=== PATIENT | female | born 1990 | race African-American/Black ===

== ENCOUNTER 2016-08-16 00:50 | Emergency (ER) | payer OTHER ==
[~2016-08-16] VITALS: Ht 170.2 cm; Wt 91.2 kg
[~2016-08-16 00:50] MED LIST: CLEOCIN HCL300 MG PO; FERROUS SULFAT325 MG PO; IMITREX50 MG PO; IMODIUM2 MG PO; KEFLEX250 MG PO; PRENATAL1 TA1 PO; PTU PO; SYNTHROID0.075 MG PO; SYNTHROID0.1 MG PO; TOPAMAX25 MG PO; TOPAMAX50 MG PO; TYLENOL #3 300/1 TAB PO; TYLENOL ES500 MG PO; ZOFRAN ODT4 MG PO
[2016-08-16 00:55] VITALS: BP 138/83
--- NOTE | 2016-08-16 01:51 | NUR ---
TO ER BED 2
--- NOTE | 2016-08-16 01:52 | NUR ---
PATIENT PRESENTS TO ED WITH RIGHT LOWER MOLAR PAIN X 1 DAY . PT STATES ITS CONSTANT SHARP PAIN . DENIES N/V/D; SKIN IS PINK/WARM/DRY; AAOX4 WITH EVEN AND STEADY GAIT; LUNGS CLEAR BL; HR EVEN AND REGULAR; PT DENIES ANY FEVER, CP, SOB, OR COUGH AT THIS TIME; PATIENT STATES PAIN OF 9/10 AT THIS TIME; VSS; PATIENT POSITIONED FOR COMFORT; HOB ELEVATED; BEDRAILS UP X2; BED DOWN. ER MD MADE AWARE OF PT STATUS.
--- NOTE | 2016-08-16 02:05 | NUR ---
Patient being evaluated by physician DR AVERY at bedside.
[2016-08-16 02:28] VITALS: BP 127/79
--- NOTE | 2016-08-16 02:28 | NUR ---
Patient discharged with v/s stable. Written and verbal after care instructions given and explained. Patient alert, oriented and verbalized understanding of instructions. Ambulatory with steady gait. All questions addressed prior to discharge. ID band removed. Patient advised to follow up with PMD. Rx of AMOX 500MG AND NORCO 5/325MG given. Patient educated on indication of medication including possible reaction and side effects. Opportunity to ask questions provided and answered.
== END 2016-08-16 02:28 | disposition home or self-care (01) ==
LOC: MED 00:50
DX: K04.7 Periapical abscess without sinus (principal); R03.0 Elevated blood-pressure reading, without diagnosis of hypertension; E03.9 Hypothyroidism, unspecified; Z88.6 Allergy status to analgesic agent; Z88.5 Allergy status to narcotic agent

== ENCOUNTER 2016-09-30 11:55 | Emergency (ER) | payer OTHER ==
[~2016-09-30] VITALS: Ht 170.2 cm; Wt 87.5 kg
[2016-09-30 11:59] VITALS: BP 109/78
--- NOTE | 2016-09-30 12:35 | NUR ---
26/F BIB SELF C/O LOWER ABDOMINAL PAIN x 2 DAYS. PT STATES PAIN RADIATING TO R BACK ,NO N/V BUT HAS CONSTIPATION. SKIN IS PINK/WARM/DRY; AAOX4 WITH EVEN AND STEADY GAIT; LUNGS CLEAR BL; HR EVEN AND REGULAR; PT DENIES ANY FEVER, CP, SOB, OR COUGH AT THIS TIME; PATIENT STATES SHARP PAIN OF 9/10 AT THIS TIME; VSS; PATIENT POSITIONED FOR COMFORT; HOB ELEVATED; BEDRAILS UP X2; BED DOWN. ER MD MADE AWARE OF PT STATUS.
[2016-09-30] MEDS ORDERED: HYDROcodone/APAP 10/325 MG 1 TAB TAB PO STA ×2 (12:54→14:07)
[2016-09-30] MEDS ORDERED: ONDANSETRON 4 MG ODT PO ONE ×2 (13:30→14:50)
--- NOTE | 2016-09-30 15:39 | NUR ---
Dr. Henry re-evaluating patient at bedside.
--- NOTE | 2016-09-30 15:47 | NUR ---
Patient discharged with v/s stable. Written and verbal after care instructions given and explained. Patient alert, oriented and verbalized understanding of instructions. Ambulatory with steady gait. All questions addressed prior to discharge. ID band removed. Patient advised to follow up with PMD. Rx of NORCO & ZOFRAN ODT given. Patient educated on indication of medication including possible reaction and side effects. Opportunity to ask questions provided and answered.
[2016-09-30 16:13] VITALS: BP 116/70
== END 2016-09-30 15:47 | disposition home or self-care (01) ==
LOC: MED 11:56
DX: K52.9 Noninfective gastroenteritis and colitis, unspecified (principal); E03.9 Hypothyroidism, unspecified; Z88.6 Allergy status to analgesic agent; Z88.1 Allergy status to other antibiotic agents
CPT/HCPCS: 76830; 76856; 81002; 81025; 99284; S0119

== ENCOUNTER 2016-10-18 03:10 | Emergency (ER) | payer OTHER ==
[~2016-10-18] VITALS: Ht 170.2 cm; Wt 89.8 kg
[~2016-10-18 03:10] MED LIST changes: -CLEOCIN HCL300 MG PO; -FERROUS SULFAT325 MG PO; -IMITREX50 MG PO; -IMODIUM2 MG PO; -KEFLEX250 MG PO; -PRENATAL1 TA1 PO; -PTU PO; +PTU50 PO; -SYNTHROID0.075 MG PO; -SYNTHROID0.1 MG PO; -TOPAMAX25 MG PO; -TOPAMAX50 MG PO; -TYLENOL #3 300/1 TAB PO; -TYLENOL ES500 MG PO; -ZOFRAN ODT4 MG PO
[2016-10-18 03:15] VITALS: BP 117/77
--- NOTE | 2016-10-18 03:20 | NUR ---
TO ER BED 4
[2016-10-18] MEDS ORDERED: fentaNYL 0.05 MG/ML VIAL IM ONE (03:35)
--- NOTE | 2016-10-18 03:45 | NUR ---
Patient being evaluated by DR. AVERY at bedside.
--- NOTE | 2016-10-18 03:51 | NUR ---
26Y/F PATIENT PRESENTS TO ED WITH C/O TOOTHACHE X3 DAYS . PT STATES TOOTHCAHE ON THE RT.SIDE 3 DAYS, NO FVER. DENIES N/V/D; SKIN IS PINK/WARM/DRY; AAOX4 WITH EVEN AND STEADY GAIT; LUNGS CLEAR BL; HR EVEN AND REGULAR; PT DENIES ANY FEVER, CP, SOB, OR COUGH AT THIS TIME; PATIENT STATES PAIN OF 9/10 AT THIS TIME; VSS; PATIENT POSITIONED FOR COMFORT; HOB ELEVATED; BEDRAILS UP X2; BED DOWN. ER MD MADE AWARE OF PT STATUS.
--- NOTE | 2016-10-18 04:30 | NUR ---
Patient discharged with v/s stable. Written and verbal after care instructions given and explained. Patient alert, oriented and verbalized understanding of instructions. Ambulatory with steady gait. All questions addressed prior to discharge. ID band removed. Patient advised to follow up with PMD. Rx of AMOXICILLIN 500 MG, TYLENOL NO.3 given. Patient educated on indication of medication including possible reaction and side effects. Opportunity to ask questions provided and answered.
[2016-10-18 04:32] VITALS: BP 120/75
== END 2016-10-18 04:30 | disposition home or self-care (01) ==
LOC: MED 03:10
DX: K04.7 Periapical abscess without sinus (principal); E03.9 Hypothyroidism, unspecified; Z88.6 Allergy status to analgesic agent; Z88.1 Allergy status to other antibiotic agents
CPT/HCPCS: 96372; 99283; J3010

== ENCOUNTER 2016-10-20 09:15 | Emergency (ER) | payer OTHER ==
[~2016-10-20] VITALS: Ht 175.3 cm; Wt 87.1 kg
[~2016-10-20 09:15] MED LIST changes: +CLEOCIN HCL300 MG PO; +FERROUS SULFAT325 MG PO; +IMITREX50 MG PO; +IMODIUM2 MG PO; +KEFLEX250 MG PO; +PRENATAL1 TA1 PO; +PTU PO; -PTU50 PO; +SYNTHROID0.075 MG PO; +SYNTHROID0.1 MG PO; +TOPAMAX25 MG PO; +TOPAMAX50 MG PO; +TYLENOL #3 300/1 TAB PO; +TYLENOL ES500 MG PO; +ZOFRAN ODT4 MG PO
[2016-10-20 09:18] VITALS: BP 115/73
--- NOTE | 2016-10-20 09:23 | NUR ---
Patient ambulated to bed 05.
--- NOTE | 2016-10-20 09:27 | NUR ---
Dr. Kearns evaluating patient at bedside.
--- NOTE | 2016-10-20 09:33 | NUR ---
PATIENT PRESENTS TO ED WITH C/O LEFT LOWER TOOTH PAIN X 6 DAYS-WAS SEEN IN OUR ER X 3 DAYS AGO RX AMOXICILLIN, TYLENOL W CODEINE;PAIN INCREASED AND NOW SURROUNDING TISSUE PAIN;HX-GRAVE'S DISEASE;RX-PTU 75MCG PO QD . DENIES N/V/D; SKIN IS PINK/WARM/DRY; AAOX4 WITH EVEN AND STEADY GAIT; LUNGS CLEAR BL; HR EVEN AND REGULAR; PT DENIES ANY FEVER, CP, SOB, OR COUGH AT THIS TIME; PATIENT STATES PAIN OF 9/10 AT THIS TIME; PATIENT POSITIONED FOR COMFORT; HOB ELEVATED; BEDRAILS UP X2; BED DOWN. ER MD MADE AWARE OF PT STATUS.
[2016-10-20] MEDS ORDERED: HYDROcodone/APAP 10/325 MG 1 TAB TAB PO PRN (09:45)
[2016-10-20 10:02] VITALS: BP 118/73
== END 2016-10-20 10:01 | disposition home or self-care (01) ==
LOC: MED 09:15
DX: K02.9 Dental caries, unspecified (principal); E03.9 Hypothyroidism, unspecified; Z88.6 Allergy status to analgesic agent; Z88.8 Allergy status to other drugs, medicaments and biological substances

== ENCOUNTER 2016-12-11 00:04 | Emergency (ER) | payer OTHER ==
[~2016-12-11] VITALS: Ht 170.2 cm; Wt 85.7 kg
[~2016-12-11 00:04] MED LIST changes: -CLEOCIN HCL300 MG PO; -FERROUS SULFAT325 MG PO; -IMITREX50 MG PO; -IMODIUM2 MG PO; -KEFLEX250 MG PO; -PRENATAL1 TA1 PO; -PTU PO; +PTU50 PO; -SYNTHROID0.075 MG PO; -SYNTHROID0.1 MG PO; -TOPAMAX25 MG PO; -TOPAMAX50 MG PO; -TYLENOL #3 300/1 TAB PO; -TYLENOL ES500 MG PO; -ZOFRAN ODT4 MG PO
[2016-12-11 00:17] VITALS: BP 129/90
[2016-12-11 00:45] LABS: APPEARANCE,URINE TURBID (CLEAR); BILIRUBIN,URINE NEGATIVE (NEGATIVE); BLOOD, URINE 3+ (NEGATIVE); COLOR,URINE RED (YELLOW); LEUKOCYTE ESTERASE ,URINE NEGATIVE (NEGATIVE); NITRITE, URINE NEGATIVE (NEGATIVE); PROTEIN,URINE 1+ (NEGATIVE); UGLUCOSE NEGATIVE (NEGATIVE)
[2016-12-11] MEDS ORDERED: NACL 0.9% 1,000 ML IV ONE (00:50)
[2016-12-11] MEDS ORDERED: KETOROLAC 30 MG/ML VIAL IVP ONE (00:50)
[2016-12-11 00:53] LABS: BASOPHILS # (AUTO) 0.3 K/uL (0.00-0.22); BASOPHILS % (AUTO) 4.9 % (0.0-2.0); EOSINOPHILS # (AUTO) 0.1 K/uL (0-0.4); EOSINOPHILS % (AUTO) 2.6 % (0.0-4.0); HEMOGLOBIN 9.8 g/dL (12.0-16.0); LYMPHOCYTES # (AUTO) 1.4 K/uL (2.5-16.5); LYMPHOCYTES % (AUTO) 25.6 % (20.5-51.1); MEAN CORPUSCULAR HEMOGLOBIN 19 pg (27-31); MEAN CORPUSCULAR HGB CONC 29 g/dL (33-37); MEAN CORPUSCULAR VOLUME 65 fL (80-94); MONOCYTES # (AUTO) 0.7 K/uL (0.8-1.0); MONOCYTES % (AUTO) 13.5 % (1.7-9.3); NEUTROPHILS % (AUTO) 53.4 % (42.2-75.2); PLATELET COUNT (AUTO) 305 K/uL (140-450); RED CELL DISTRIBUTION WIDTH 17.5 % (11.6-13.7); WHITE BLOOD COUNT (AUTO) 5.5 K/uL (4.8-10.8)
[2016-12-11 00:54] LABS: HEMATOCRIT 29.4 % (36-48)
[2016-12-11 01:00] LABS: ALBUMIN 3.8 g/dL (3.4-5.0); ANION GAP 10.9 (8-16); CALCIUM 8.2 mg/dL (8.5-10.1); CARBON DIOXIDE 28.6 mmol/L (21-32); CREATININE 0.8 mg/dL (0.6-1.3); POTASSIUM 3.5 mmol/L (3.5-5.1); TOTAL BILIRUBIN 0.1 mg/dL (0.0-1.0); TOTAL PROTEIN, SERUM 8.1 g/dL (6.4-8.2)
[2016-12-11 01:06] LABS: INR 1.1 (0.8-1.2); PARTIAL THROMBOPLASTIN TIME 27.4 secs (22-35.6); PROTHROMBIN TIME 10.7 secs (10.8-13.4)
[2016-12-11 01:06] LABS: BACTERIA,URINE FEW /HPF (None Seen); MUCUS,URINE 4+ /LPF (None Seen); RBC,URINE TOO NUMEROUS TO COUN /HPF (0-5); SQUAMOUS EPITHELIAL CELL,UR 0-3 /LPF (0-3 (FEW)); WBC,URINE 0-3 /HPF (0-5)
[2016-12-11] MEDS ORDERED: MORPHINE SULFATE 4 MG/ML SYR IVP ONE (01:40)
[2016-12-11 02:08] VITALS: BP 110/88
== END 2016-12-11 02:08 | disposition home or self-care (01) ==
LOC: MED 00:04
DX: N93.8 Other specified abnormal uterine and vaginal bleeding (principal); E05.00 Thyrotoxicosis with diffuse goiter without thyrotoxic crisis or storm; Z88.6 Allergy status to analgesic agent
CPT/HCPCS: 36415; 76856; 80053; 81001; 81002; 81025; 85025; 85610; 85730; 86900; 86901; 96361; 96374; 96375; 99285; J1885; J2270; J7030; Q0092

== ENCOUNTER 2016-12-13 10:28 | Emergency (ER) | payer OTHER ==
[~2016-12-13] VITALS: Ht 172.7 cm; Wt 84.9 kg
[2016-12-13 10:35] VITALS: BP 124/69
--- NOTE | 2016-12-13 11:34 | NUR ---
PT AMBULATED TO BED 6
--- NOTE | 2016-12-13 11:38 | NUR ---
26F BIB FAMILY C/O BILATERAL LOWER ABDOMINAL PAIN, SHARP, RADIATES TO LEFT BACK, 8/10 X 2 DAYS; PT C/O NAUSEA, BUT DENIES VOMITING/DIARRHEA AT THIS TIME; ABDOMEN SOFT, NON-TENDER, ACTIVE BOWEL SOUNDS X 4 QUADRANTS; PT AA&OX4, PERRLA, BL LUNG SOUNDS CLEAR, RR EVEN/UNLABORED, SKIN IS WARM/DRY/INTACT AT THIS TIME; PT STATES WAS SEEN AT [facility] ER ON SATURDAY FOR SAME SIGNS/SYMPTOMS, BUT SIGNS AND SYMPTOMS WORSENED SINCE PREVIOUS VISIT; PT RESTING IN BED W/ HOB ELEVATED AND IN LOWEST POSITION; POSITIONED FOR COMFORT; ER MD MADE AWARE OF STATUS. WILL CONTINUE TO MONITOR.
[2016-12-13 12:10] LABS: APPEARANCE,URINE CLEAR (CLEAR); BILIRUBIN,URINE NEGATIVE (NEGATIVE); BLOOD, URINE 2+ (NEGATIVE); COLOR,URINE YELLOW (YELLOW); LEUKOCYTE ESTERASE ,URINE NEGATIVE (NEGATIVE); NITRITE, URINE NEGATIVE (NEGATIVE); PROTEIN,URINE NEGATIVE (NEGATIVE); UGLUCOSE NEGATIVE (NEGATIVE); UROBILINOGEN,URINE 0.2 EU/dL (0.2 - 1)
[2016-12-13 12:14] LABS: HEMATOCRIT 29.1 % (36-48); HEMOGLOBIN 9.1 g/dL (12.0-16.0); MEAN CORPUSCULAR HEMOGLOBIN 20 pg (27-31); MEAN CORPUSCULAR HGB CONC 31 g/dL (33-37); MEAN CORPUSCULAR VOLUME 65 fL (80-94); PLATELET COUNT (AUTO) 218 K/uL (140-450); RED BLOOD CELL COUNT(AUTO) 4.51 MIL/uL (4.20-5.40); RED CELL DISTRIBUTION WIDTH 17.6 % (11.6-13.7); WHITE BLOOD COUNT (AUTO) 4.3 K/uL (4.8-10.8)
--- NOTE | 2016-12-13 12:18 | NUR ---
ER MD DR. CAUSEY EVALUATING PT AT BEDSIDE.
[2016-12-13 12:24] LABS: ALBUMIN 3.3 g/dL (3.4-5.0); CALCIUM 7.8 mg/dL (8.5-10.1); CARBON DIOXIDE 27.6 mmol/L (21-32); CREATININE 0.7 mg/dL (0.6-1.3); POTASSIUM 3.6 mmol/L (3.5-5.1); TOTAL BILIRUBIN 0.3 mg/dL (0.0-1.0); TOTAL PROTEIN, SERUM 7.2 g/dL (6.4-8.2)
[2016-12-13 12:26] LABS: BACTERIA,URINE None Seen /HPF (None Seen); RBC,URINE NONE SEEN /HPF (0-5); SQUAMOUS EPITHELIAL CELL,UR 4-10 (MOD) /LPF (0-3 (FEW)); WBC,URINE 0-5 (RARE) /HPF (0-5)
[2016-12-13 12:41] LABS: BAND % (MANUAL) 1 % (0-8); LYMPHOCYTES % (MANUAL) 25 % (20-46); MONOCYTES % (MANUAL) 8 % (5-12); NEUTROPHILS % (MANUAL) 66 (43-65)
[2016-12-13 12:42] LABS: ANISOCYTOSIS 1+; HYPOCHROMASIA 1+; POIKILOCYTOSIS 1+
[2016-12-13 12:43] LABS: OVALOCYTES 1+; TEAR DROP CELLS 1+
--- NOTE | 2016-12-13 13:12 | NUR ---
PT APPEARS TO BE RESTING COMFORTABLY IN BED; VSS; RR EVEN/UNLABORED; POSITIONED FOR COMFORT; WILL CONTINUE TO MONITOR.
[2016-12-13] MEDS ORDERED: ONDANSETRON 4 MG/2 ML VIAL IVP ONE (13:15)
[2016-12-13] MEDS ORDERED: NACL 0.9% 1,000 ML IV ONE (13:15)
[2016-12-13] MEDS ORDERED: HYDROmorphone 1 MG/ML AMP IVP ONE (13:15)
--- NOTE | 2016-12-13 14:36 | NUR ---
IV removed, catheter intact and site benign. Applied folded 4x4 gauze and tape to stop bleeding. PT TOLERATED PROCEDURE WELL.
--- NOTE | 2016-12-13 15:24 | NUR ---
PT APPEARS TO BE RESTING COMFORTABLY IN BED; VSS; RR EVEN/UNLABORED; POSITIONED FOR COMFORT; WILL CONTINUE TO MONITOR.
[2016-12-13 15:49] VITALS: BP 125/83
--- NOTE | 2016-12-13 15:49 | NUR ---
Patient discharged with v/s stable. Written and verbal after care instructions given and explained. Patient alert, oriented and verbalized understanding of instructions. Ambulatory with steady gait. All questions addressed prior to discharge. ID band removed. Patient advised to follow up with PMD. Rx of PYRIDIUM 200MG TAB, CIPRO 500MG TAB & NORCO 7.5MG-325MG TAB given. Patient educated on indication of medication including possible reaction and side effects. Opportunity to ask questions provided and answered.
== END 2016-12-13 15:49 | disposition home or self-care (01) ==
LOC: MED 10:28
DX: R10.32 Left lower quadrant pain (principal); R30.0 Dysuria; R35.0 Frequency of micturition; Z88.6 Allergy status to analgesic agent
CPT/HCPCS: 36415; 80053; 81001; 81025; 85025; 96361; 96374; 96375; 99284; J1170; J2405; J7030

== ENCOUNTER 2016-12-26 00:35 | Emergency (ER) | payer OTHER ==
[~2016-12-26] VITALS: Ht 170.2 cm; Wt 87.5 kg
[2016-12-26 00:39] VITALS: BP 149/100
--- NOTE | 2016-12-26 00:54 | NUR ---
TO ER BED 7
--- NOTE | 2016-12-26 01:00 | NUR ---
26F BIB FAMILY C/O MID-LOWER ABDOMINAL PAIN, SHARP, RADIATES TO RT BACK, 10 X 2 WEEKS; PT STATES HAD 4 EPISODES OF VOMITING TODAY, BUT STATES NO DIARRHEA AT THIS TIME; ABDOMEN SOFT, NON-TENDER, ACTIVE BOWEL SOUNDS X 4 QUADRANTS; PT STATES HAS FREQUENT URINATION, BUT STATES NO BURNING WITH URINATION AT THIS TIME; PT AA&OX4, PERRLA, BL LUNG SOUNDS CLEAR, RR EVEN/UNLABORED, SKIN IS WARM/DRY/INTACT; PT RESTING IN BED WITH HOB ELEVATED AND IN LOWEST POSITION; POSITIONED FOR COMFORT; ER MD MADE AWARE OF STATUS. WILL CONTINUE TO MONITOR.
[2016-12-26] MEDS ORDERED: NACL 0.9% 1,000 ML IV ONE (01:38)
[2016-12-26] MEDS ORDERED: MORPHINE SULFATE 4 MG/ML SYR IVP ONE ×2 (01:40→02:15)
[2016-12-26] MEDS ORDERED: ONDANSETRON 4 MG/2 ML VIAL IVP ONE (01:40)
[2016-12-26 01:57] LABS: BASOPHILS # (AUTO) 0.1 K/uL (0.00-0.22); EOSINOPHILS # (AUTO) 0.1 K/uL (0-0.4)
[2016-12-26 01:59] LABS: APPEARANCE,URINE CLOUDY (CLEAR); BILIRUBIN,URINE NEGATIVE (NEGATIVE); BLOOD, URINE NEGATIVE (NEGATIVE); COLOR,URINE YELLOW (YELLOW); LEUKOCYTE ESTERASE ,URINE NEGATIVE (NEGATIVE); NITRITE, URINE NEGATIVE (NEGATIVE); PROTEIN,URINE NEGATIVE (NEGATIVE); UGLUCOSE NEGATIVE (NEGATIVE); UROBILINOGEN,URINE 0.2 EU/dL (0.2 - 1)
[2016-12-26 02:00] LABS: BASOPHILS % (AUTO) 1.9 % (0.0-2.0); EOSINOPHILS % (AUTO) 1.3 % (0.0-4.0); HEMATOCRIT 30.1 % (36-48); HEMOGLOBIN 9.1 g/dL (12.0-16.0); LYMPHOCYTES # (AUTO) 1.5 K/uL (2.5-16.5); LYMPHOCYTES % (AUTO) 27.8 % (20.5-51.1); MEAN CORPUSCULAR HEMOGLOBIN 19 pg (27-31); MEAN CORPUSCULAR HGB CONC 30 g/dL (33-37); MEAN CORPUSCULAR VOLUME 64 fL (80-94); MONOCYTES # (AUTO) 0.8 K/uL (0.8-1.0); MONOCYTES % (AUTO) 14.1 % (1.7-9.3); NEUTROPHILS % (AUTO) 54.9 % (42.2-75.2); PLATELET COUNT (AUTO) 234 K/uL (140-450); RED CELL DISTRIBUTION WIDTH 17.1 % (11.6-13.7); WHITE BLOOD COUNT (AUTO) 5.5 K/uL (4.8-10.8)
[2016-12-26 02:06] LABS: AMPHETAMINE, URINE NEG. ng/ml (NEG <=1000); BARBITURATE, URINE POS. ng/ml (NEG <=200); BENZODIAZEPINE, URINE NEG. ng/mL (NEG <=200); CANNABINOID, URINE NEG. ng/mL (NEG <=50); COCAINE, URINE NEG. ng/mL (NEG <=300); OPIATE, URINE POS. ng/mL (NEG <=2000); PHENCYCLIDINE SCREEN,URINE NEG. ng/mL (NEG <=25)
--- NOTE | 2016-12-26 02:09 | NUR ---
PT BACK ON UNIT FROM CT
[2016-12-26 02:15] LABS: ALBUMIN 3.4 g/dL (3.4-5.0); ANION GAP 9.6 (8-16); CALCIUM 7.8 mg/dL (8.5-10.1); CARBON DIOXIDE 26.9 mmol/L (21-32); CREATININE 0.7 mg/dL (0.6-1.3); POTASSIUM 3.5 mmol/L (3.5-5.1); TOTAL BILIRUBIN 0.2 mg/dL (0.0-1.0); TOTAL PROTEIN, SERUM 7.4 g/dL (6.4-8.2)
[2016-12-26 02:20] LABS: BACTERIA,URINE None Seen /HPF (None Seen); RBC,URINE NONE SEEN /HPF (0-5); SQUAMOUS EPITHELIAL CELL,UR None Seen /LPF (0-3 (FEW)); WBC,URINE 0-5 (RARE) /HPF (0-5)
[2016-12-26 04:13] VITALS: BP 132/88
--- NOTE | 2016-12-26 04:14 | NUR ---
Patient discharged with v/s stable. Written and verbal after care instructions given and explained. Patient alert, oriented and verbalized understanding of instructions. Ambulatory with steady gait. All questions addressed prior to discharge. ID band removed. Patient advised to follow up with PMD. Rx of NORCO, COLACE, FLEXERIL given. Patient educated on indication of medication including possible reaction and side effects. Opportunity to ask questions provided and answered.
== END 2016-12-26 04:13 | disposition home or self-care (01) ==
LOC: MED 00:35
DX: R10.30 Lower abdominal pain, unspecified (principal); M54.5 Low back pain; R11.10 Vomiting, unspecified; Z88.6 Allergy status to analgesic agent; E05.00 Thyrotoxicosis with diffuse goiter without thyrotoxic crisis or storm
CPT/HCPCS: 36415; 74176; 80053; 80305; 81001; 81025; 83690; 85025; 96361; 96374; 96375; 99285; J2270; J2405; J7030

== ENCOUNTER 2017-02-02 03:09 | Emergency (ER) | payer OTHER ==
[~2017-02-02] VITALS: Ht 170.2 cm; Wt 87.5 kg
[2017-02-02 03:13] VITALS: BP 136/90
[2017-02-02 03:25] VITALS: BP 136/90
--- NOTE | 2017-02-02 03:25 | NUR ---
TO ER BED 6
--- NOTE | 2017-02-02 03:29 | NUR ---
26Y/F PATIENT PRESENTS TO ED WITH C/O TOOTHACHE 2 HRS; SKIN IS PINK/WARM/DRY; AAOX4 WITH EVEN AND STEADY GAIT; LUNGS CLEAR BL; HR EVEN AND REGULAR; PT DENIES ANY FEVER, CP, SOB, OR COUGH AT THIS TIME; PATIENT STATES PAIN OF 9/10 AT THIS TIME; VSS; PATIENT POSITIONED FOR COMFORT; HOB ELEVATED; BEDRAILS UP X2; BED DOWN. ER MD MADE AWARE OF PT STATUS.
--- NOTE | 2017-02-02 04:19 | NUR ---
Patient being evaluated by physician at bedside.
--- NOTE | 2017-02-02 04:25 | NUR ---
PATIENT ELOPED FROM FACILITY. DISCHARGE INSTRUCTIONS NOT GIVEN TO PATIENT. DR. BRITO NOTIFIED.
== END 2017-02-02 04:25 | disposition left against medical advice (07) ==
LOC: MED 03:21
DX: K08.89 Other specified disorders of teeth and supporting structures (principal); Z53.21 Procedure and treatment not carried out due to patient leaving prior to being seen by health care provider
CPT/HCPCS: 99281

== ENCOUNTER 2017-07-07 10:41 | Emergency (ER) | payer OTHER ==
[~2017-07-07] VITALS: Ht 170.2 cm; Wt 76.7 kg
[2017-07-07 10:49] VITALS: BP 130/83
--- NOTE | 2017-07-07 10:53 | NUR ---
PT AMBULATED TO BED 11
--- NOTE | 2017-07-07 10:57 | NUR ---
PATIENT PRESENTS TO ED WITH LLQ pain radiating to left lower x 1 week Hx graves disease; DENIES N/V/D; SKIN IS PINK/WARM/DRY; AAOX4 WITH EVEN AND STEADY GAIT; LUNGS CLEAR BL; HR EVEN AND REGULAR; PT DENIES ANY FEVER, CP, SOB, OR COUGH AT THIS TIME; PATIENT STATES PAIN OF 9/10 AT THIS TIME; VSS; PATIENT POSITIONED FOR COMFORT; HOB ELEVATED; BEDRAILS UP X2; BED DOWN. ER MD MADE AWARE OF PT STATUS.
--- NOTE | 2017-07-07 11:09 | NUR ---
DR DONIS EVALUATING AAO PT AT BEDSIDE
[2017-07-07] MEDS ORDERED: MORPHINE SULFATE 4 MG/ML SYR IM ONE (11:15)
[2017-07-07 11:41] VITALS: BP 133/79
--- NOTE | 2017-07-07 11:41 | NUR ---
Patient discharged with v/s stable. Written and verbal after care instructions given and explained. Patient alert, oriented and verbalized understanding of instructions. Ambulatory with steady gait. All questions addressed prior to discharge. ID band removed. Patient advised to follow up with PMD. Rx of FERNANDO BROUSSARD given. Patient educated on indication of medication including possible reaction and side effects. Opportunity to ask questions provided and answered.
== END 2017-07-07 11:41 | disposition home or self-care (01) ==
LOC: MED 10:41
DX: M54.5 Low back pain (principal); R11.0 Nausea; R10.9 Unspecified abdominal pain; Z79.899 Other long term (current) drug therapy; Z88.8 Allergy status to other drugs, medicaments and biological substances
CPT/HCPCS: 81002; 81025; 96372; 99283; J2270

== ENCOUNTER 2017-08-12 12:32 | Emergency (ER) | payer OTHER ==
[~2017-08-12] VITALS: Ht 172.7 cm; Wt 75.3 kg
[2017-08-12 12:59] VITALS: BP 120/73
[2017-08-12 14:32] LABS: BASOPHILS # (AUTO) 0.1 K/uL (0.00-0.22); BASOPHILS % (AUTO) 1.3 % (0.0-2.0); EOSINOPHILS # (AUTO) 0.1 K/uL (0-0.4); EOSINOPHILS % (AUTO) 0.9 % (0.0-4.0); HEMATOCRIT 33.3 % (36-48); HEMOGLOBIN 10.4 g/dL (12.0-16.0); LYMPHOCYTES # (AUTO) 0.8 K/uL (2.5-16.5); LYMPHOCYTES % (AUTO) 13.5 % (20.5-51.1); MEAN CORPUSCULAR HEMOGLOBIN 20 pg (27-31); MEAN CORPUSCULAR HGB CONC 31 g/dL (33-37); MEAN CORPUSCULAR VOLUME 65 fL (80-94); MONOCYTES # (AUTO) 0.8 K/uL (0.8-1.0); MONOCYTES % (AUTO) 13.5 % (1.7-9.3); NEUTROPHILS # (AUTO) 3.9 K/uL (1.8-7.7); NEUTROPHILS % (AUTO) 70.8 % (42.2-75.2); PLATELET COUNT (AUTO) 267 K/uL (140-450); RED BLOOD CELL COUNT(AUTO) 5.13 MIL/uL (4.20-5.40); WHITE BLOOD COUNT (AUTO) 5.7 K/uL (4.8-10.8)
--- NOTE | 2017-08-12 16:10 | NUR ---
PT AMBULATED TO CHAIR A.
--- NOTE | 2017-08-12 16:15 | NUR ---
PATIENT PRESENTS TO ED WITH C/O SUPRAPUBIC PAIN RADIATING TO BACK, WITH FREQUENCY, URGENCY URINATION X 2 DAYS AGO, DENIES ANY DISCHARGE. AAOX4 WITH EVEN AND STEADY GAIT; LUNGS CLEAR BL; HR EVEN AND REGULAR; PT DENIES ANY FEVER, CP, SOB, OR COUGH AT THIS TIME; DENIES N/V/D; SKIN IS PINK/WARM/DRY; PATIENT STATES PAIN OF 8/10 AT THIS TIME; VSS; ER MD MADE AWARE OF PT STATUS.
[2017-08-12 18:24] VITALS: BP 120/73
--- NOTE | 2017-08-12 18:25 | NUR ---
Patient discharged with v/s stable. Written and verbal after care instructions given and explained. Patient alert, oriented and verbalized understanding of instructions. Ambulatory with steady gait. All questions addressed prior to discharge. ID band removed. Patient advised to follow up with PMD. Rx of ferrous sulfat, folic acid and pre vitamin given. Patient educated on indication of medication including possible reaction and side effects. Opportunity to ask questions provided and answered.
== END 2017-08-12 18:25 | disposition home or self-care (01) ==
LOC: MED 12:32
DX: O20.0 Threatened abortion (principal); Z3A.01 Less than 8 weeks gestation of pregnancy; E05.00 Thyrotoxicosis with diffuse goiter without thyrotoxic crisis or storm; Z88.6 Allergy status to analgesic agent
CPT/HCPCS: 36415; 76817; 81025; 84702; 85025; 86900; 86901; 99285

== ENCOUNTER 2017-08-23 03:05 | Emergency (ER) | payer OTHER ==
[~2017-08-23] VITALS: Ht 170.2 cm; Wt 74.1 kg
[2017-08-23 03:12] VITALS: BP 127/85
--- NOTE | 2017-08-23 03:16 | NUR ---
PT AMBULATED TO BED 1
--- NOTE | 2017-08-23 03:26 | NUR ---
27Y/F PT. PRESENTS TO ED WITH C/O VAGINAL BLEEDING WITH ABDOMINAL CRAMPING X 1DAY. PT. WAS DIAGNOSED OVARIAN CYST WITH THREATTEN MISCARRAGE, GRAVE DISEASE. AAO X4, AMBULATORY WITH STDEAY GAIT. RESPIRATIONS ROOM AIR, EVEN AND UNLABORED. SKIN WARM AND DRY. ABDOMEN SOFT, NON TENDER,ACTIVE BS X4. C/O VAGINAL BLEEDING WITH ABDOMINAL PAIN 9/10. VSS, ER MADE AWARE OF PT. STATUS.
[2017-08-23 03:32] LABS: BASOPHILS # (AUTO) 0.3 K/uL (0.00-0.22); BASOPHILS % (AUTO) 3.6 % (0.0-2.0); EOSINOPHILS # (AUTO) 0.1 K/uL (0-0.4); EOSINOPHILS % (AUTO) 0.9 % (0.0-4.0); HEMOGLOBIN 9.6 g/dL (12.0-16.0); LYMPHOCYTES # (AUTO) 1.3 K/uL (2.5-16.5); LYMPHOCYTES % (AUTO) 17.7 % (20.5-51.1); MEAN CORPUSCULAR HEMOGLOBIN 20 pg (27-31); MEAN CORPUSCULAR HGB CONC 31 g/dL (33-37); MEAN CORPUSCULAR VOLUME 65 fL (80-94); MONOCYTES # (AUTO) 0.8 K/uL (0.8-1.0); MONOCYTES % (AUTO) 10.9 % (1.7-9.3); NEUTROPHILS # (AUTO) 4.6 K/uL (1.8-7.7); NEUTROPHILS % (AUTO) 66.9 % (42.2-75.2); PLATELET COUNT (AUTO) 285 K/uL (140-450); RED BLOOD CELL COUNT(AUTO) 4.79 MIL/uL (4.20-5.40); WHITE BLOOD COUNT (AUTO) 7.1 K/uL (4.8-10.8)
[2017-08-23 03:33] LABS: APPEARANCE,URINE TURBID (CLEAR); BILIRUBIN,URINE 1+ (NEGATIVE); BLOOD, URINE 3+ (NEGATIVE); COLOR,URINE RED (YELLOW); LEUKOCYTE ESTERASE ,URINE NEGATIVE (NEGATIVE); NITRITE, URINE NEGATIVE (NEGATIVE); PH,URINE 5.5 (5.0-9.0); UGLUCOSE NEGATIVE (NEGATIVE)
--- NOTE | 2017-08-23 03:37 | NUR ---
Dr. Henry evaluating patient.
[2017-08-23 03:44] LABS: ANION GAP 10.9 (8-16); CARBON DIOXIDE 26.4 mmol/L (21-32); CREATININE 0.7 mg/dL (0.6-1.3); POTASSIUM 3.3 mmol/L (3.5-5.1)
[2017-08-23 03:44] LABS: RBC,URINE TOO NUMEROUS TO COUN /HPF (0-5); WBC,URINE 0-5 (RARE) /HPF (0-5)
[2017-08-23 03:53] LABS: ALBUMIN 3.9 g/dL (3.4-5.0); TOTAL BILIRUBIN 1.1 mg/dL (0.0-1.0)
[2017-08-23] MEDS ORDERED: MORPHINE SULFATE 2 MG/ML SYR IVP ONE (03:55)
[2017-08-23] MEDS ORDERED: ONDANSETRON 4 MG/2 ML VIAL IVP ONE (03:55)
[2017-08-23] MEDS ORDERED: NACL 0.9% 1,000 ML IV ONE (04:05)
--- NOTE | 2017-08-23 04:10 | NUR ---
PT. TAKEN TO US
--- NOTE | 2017-08-23 04:20 | NUR ---
PT RETURN FROM ULTRASOUND
--- NOTE | 2017-08-23 04:50 | NUR ---
Patient discharged with v/s stable. Written and verbal after care instructions given and explained. Patient alert, oriented and verbalized understanding of instructions. Ambulatory with steady gait. All questions addressed prior to discharge. ID band removed. Patient advised to follow up with PMD. Rx of NORCO 5/325 MG given. Patient educated on indication of medication including possible reaction and side effects. Opportunity to ask questions provided and answered.
[2017-08-23 05:00] VITALS: BP 127/85
== END 2017-08-23 04:50 | disposition home or self-care (01) ==
LOC: MED 03:05
DX: O03.9 Complete or unspecified spontaneous abortion without complication (principal); E05.00 Thyrotoxicosis with diffuse goiter without thyrotoxic crisis or storm; Z3A.01 Less than 8 weeks gestation of pregnancy; Z88.6 Allergy status to analgesic agent
CPT/HCPCS: 36415; 76801; 80053; 81001; 81025; 84443; 84702; 85025; 85610; 85730; 86900; 86901; 96361; 96374; 96375; 99285; J2270; J2405; J7030

== ENCOUNTER 2017-09-17 03:50 | Emergency (ER) | payer OTHER ==
[~2017-09-17] VITALS: Ht 170.2 cm; Wt 75.3 kg
[2017-09-17 03:56] VITALS: BP 140/90
--- NOTE | 2017-09-17 04:01 | NUR ---
PATIENT AMBULATED TO BED 2
--- NOTE | 2017-09-17 04:05 | NUR ---
PATIENT PRESENTS TO ED WITH MOUTH PAIN DUE TO BROKEN TOOTH X1 DAY. PT DENIES N/V/D; SKIN IS PINK/WARM/DRY; AAOX4 WITH EVEN AND STEADY GAIT; LUNGS CLEAR BL; HR EVEN AND REGULAR; PT DENIES ANY FEVER, CP, SOB, OR COUGH AT THIS TIME; PATIENT STATES PAIN OF 10/10 AT THIS TIME; VSS; PATIENT POSITIONED FOR COMFORT; HOB ELEVATED; BEDRAILS UP X1; BED DOWN. ER MD MADE AWARE OF PT STATUS.
[2017-09-17] MEDS ORDERED: HYDROcodone/APAP 5/325 MG 1 TAB TAB PO ONE (04:10)
[2017-09-17 04:20] VITALS: BP 140/90
== END 2017-09-17 04:20 | disposition home or self-care (01) ==
LOC: MED 03:50
DX: S02.5XXA Fracture of tooth (traumatic), initial encounter for closed fracture (principal); E05.00 Thyrotoxicosis with diffuse goiter without thyrotoxic crisis or storm; Z88.6 Allergy status to analgesic agent; X58.XXXA Exposure to other specified factors, initial encounter; Y93.89 Activity, other specified; Y92.89 Other specified places as the place of occurrence of the external cause; Y99.8 Other external cause status
CPT/HCPCS: 99283

== ENCOUNTER 2017-10-17 00:15 | Emergency (ER) | payer OTHER ==
[~2017-10-17] VITALS: Ht 170.2 cm; Wt 93.0 kg
[2017-10-17 00:20] VITALS: BP 136/85
--- NOTE | 2017-10-17 00:25 | NUR ---
PT AMBULATED TO ER BED 8
--- NOTE | 2017-10-17 00:41 | NUR ---
27Y/F C/O LOWER ABD PAIN AND LLQ TENDERNESS X6 HOURS ABD IS ROUND, SOFT, TENDER TO LLQ, ACTIVE BS X4. PT C/O N/V. PT LAYING IN BED, FAMILY AT BEDSIDE. PMH ARIA DANIELLE ALLERGRY TO TRAMADOL, IBUPROFEN
--- NOTE | 2017-10-17 00:42 | NUR ---
Dr. Rose evaluating patient at bedside.
[2017-10-17] MEDS ORDERED: NACL 0.9% 1,000 ML IV ONE (00:45)
[2017-10-17] MEDS ORDERED: ONDANSETRON 4 MG/2 ML VIAL IVP ONE (00:45)
[2017-10-17] MEDS ORDERED: HYDROmorphone 1 MG/ML AMP IVP ONE (00:45)
[2017-10-17 01:10] LABS: BASOPHILS % (AUTO) 0.5 % (0.0-2.0); EOSINOPHILS # (AUTO) 0.1 K/uL (0-0.4); EOSINOPHILS % (AUTO) 1.1 % (0.0-4.0); HEMATOCRIT 29.3 % (36-48); HEMOGLOBIN 8.9 g/dL (12.0-16.0); LYMPHOCYTES # (AUTO) 1.6 K/uL (2.5-16.5); LYMPHOCYTES % (AUTO) 29.6 % (20.5-51.1); MEAN CORPUSCULAR HEMOGLOBIN 18 pg (27-31); MEAN CORPUSCULAR HGB CONC 31 g/dL (33-37); MEAN CORPUSCULAR VOLUME 60.2 fL (80-94); MONOCYTES # (AUTO) 0.8 K/uL (0.8-1.0); MONOCYTES % (AUTO) 14.6 % (1.7-9.3); NEUTROPHILS # (AUTO) 2.9 K/uL (1.8-7.7); NEUTROPHILS % (AUTO) 54.2 % (42.2-75.2); PLATELET COUNT (AUTO) 305 K/uL (140-450); RED BLOOD CELL COUNT(AUTO) 4.86 MIL/uL (4.20-5.40); RED CELL DISTRIBUTION WIDTH 18.4 % (11.6-13.7); WHITE BLOOD COUNT (AUTO) 5.4 K/uL (4.8-10.8)
[2017-10-17 01:21] LABS: ANION GAP 13.7 (8-16); CARBON DIOXIDE 24.8 mmol/L (21-32); CREATININE 0.8 mg/dL (0.6-1.3); POTASSIUM 3.5 mmol/L (3.5-5.1)
--- NOTE | 2017-10-17 01:25 | NUR ---
PT TAKEN TO CT
--- NOTE | 2017-10-17 01:38 | NUR ---
PT RETURNED FROM CT SCAN VIA WHEELCHAIR.
[2017-10-17] MEDS ORDERED: fentaNYL 0.05 MG/ML VIAL IVP ONE (02:25)
--- NOTE | 2017-10-17 03:12 | NUR ---
Patient discharged with v/s stable. Written and verbal after care instructions given and explained. Patient alert, oriented and verbalized understanding of instructions. Ambulatory with steady gait. All questions addressed prior to discharge. ID band removed. Patient advised to follow up with PMD. Rx of COLACE, NORCO given. Patient educated on indication of medication including possible reaction and side effects. Opportunity to ask questions provided and answered. PT STATES HER BOYFRIEND WILL BE DRIVING HER HOME.
[2017-10-17 03:14] VITALS: BP 128/87
== END 2017-10-17 03:12 | disposition home or self-care (01) ==
LOC: MED 00:15
DX: R10.32 Left lower quadrant pain (principal); R11.2 Nausea with vomiting, unspecified; E05.00 Thyrotoxicosis with diffuse goiter without thyrotoxic crisis or storm; R88.8 Abnormal findings in other body fluids and substances
CPT/HCPCS: 36415; 74176; 80053; 81002; 81025; 83690; 85025; 96361; 96374; 96375; 99285; J1170; J2405; J3010; J7030

== ENCOUNTER 2017-10-23 09:48 | Emergency (ER) | payer OTHER ==
[~2017-10-23] VITALS: Ht 170.2 cm; Wt 73.7 kg
[2017-10-23 09:53] VITALS: BP 120/68
--- NOTE | 2017-10-23 09:58 | NUR ---
AFTER PROVIDING URINE SAMPLE, PT AMBULAES TO BED 12
--- NOTE | 2017-10-23 10:00 | NUR ---
PT. CAME IN DUE TO INCREASED VAGINAL BLEEDING. PT. STATES " I WAS IN HERE ON 10/21/17, BECAUSE OF MY VAGINAL BLEEDING AND WAS TOLD THAT I HAD OVARIAN CYSTS, BUT MY BLEEDING HAS BEEN GETTING WORSE SINCE THIS MORNING I HAVE SOAKED THROUGH 5 PADS SO FAR, AND I HAVE BEEN HAVING PAIN IN MY LOWER ABD FEELS LIKES CONTRACTIONS". PT. STATES SHE HAS 9/10 PAIN IN LOWER ABD AND DESCRIBED CONTRACTIONS PAIN THAT RADIATES TO HER BACK. PT. STATES SHE HAD "A MISCARRIAGE ABOUT A MONTH AGO AND NO D/C WAS DONE". RR EVEN AND UNLABORED. PT. AAOX4. DENIES N/V/D. DENIES SOB. DENIES CHEST PAIN.
[2017-10-23] MEDS ORDERED: MORPHINE SULFATE 4 MG/ML SYR IM ONE (10:45)
[2017-10-23 10:47] LABS: BASOPHILS % (AUTO) 0.1 % (0.0-2.0); EOSINOPHILS % (AUTO) 1.5 % (0.0-4.0); HEMATOCRIT 28.4 % (36-48); HEMOGLOBIN 8.7 g/dL (12.0-16.0); LYMPHOCYTES # (AUTO) 0.7 K/uL (2.5-16.5); LYMPHOCYTES % (AUTO) 22.5 % (20.5-51.1); MEAN CORPUSCULAR HEMOGLOBIN 18 pg (27-31); MEAN CORPUSCULAR HGB CONC 31 g/dL (33-37); MONOCYTES # (AUTO) 0.4 K/uL (0.8-1.0); MONOCYTES % (AUTO) 14.1 % (1.7-9.3); NEUTROPHILS # (AUTO) 1.9 K/uL (1.8-7.7); NEUTROPHILS % (AUTO) 61.8 % (42.2-75.2); PLATELET COUNT (AUTO) 289 K/uL (140-450); RED BLOOD CELL COUNT(AUTO) 4.74 MIL/uL (4.20-5.40); RED CELL DISTRIBUTION WIDTH 18.8 % (11.6-13.7); WHITE BLOOD COUNT (AUTO) 3.1 K/uL (4.8-10.8)
[2017-10-23] MEDS ORDERED: ONDANSETRON 4 MG ODT PO ONE (11:55)
--- NOTE | 2017-10-23 11:55 | NUR ---
DR. NORIEGA IN ROOM PERFORMING PELVIC EXAM.
[2017-10-23 12:10] VITALS: BP 125/77
--- NOTE | 2017-10-23 12:15 | NUR ---
PT. RESTING IN ROOM COMFORTABLY, RR EVEN AND UNLABORED. AAOX4. WILL CONTINUE TO MONITOR.
--- NOTE | 2017-10-23 12:23 | NUR ---
UPON WALKING INTO PT. ROOM SHE HAD ALREADY LEFT AND DID NOT WAIT FOR DISCHARGE ORDERS AND DID NOT LET ANYONE KNOW. WHEN ASKING ADMITTING IF THEY HAD SEEN HER LEAVE THEY SAID SHE DID. PT. LEFT WITHOUT DISCHARGE INSTRUCTIONS , DR. NORIEGA NOTIFIED.
== END 2017-10-23 12:23 | disposition home or self-care (01) ==
LOC: MED 09:48
DX: N93.8 Other specified abnormal uterine and vaginal bleeding (principal); E05.00 Thyrotoxicosis with diffuse goiter without thyrotoxic crisis or storm; Z88.8 Allergy status to other drugs, medicaments and biological substances
CPT/HCPCS: 36415; 76830; 76856; 81002; 81025; 84702; 85025; 96372; 99285; J2270; Q0092; S0119

== ENCOUNTER 2017-10-26 23:21 | Emergency (ER) | payer OTHER ==
[~2017-10-26] VITALS: Ht 170.2 cm; Wt 74.8 kg
[2017-10-26 23:36] VITALS: BP 131/87
--- NOTE | 2017-10-26 23:40 | NUR ---
TO LOBBY, A/W BED, ABM, VSS, ERMD NOTED
--- NOTE | 2017-10-26 23:42 | NUR ---
PATIENT PRESENTS TO ED WITH ABDOMINAL PAIN X1 WEEK. PT STATES NAUSEA; PATIENT DENIES V/D; SKIN IS PINK/WARM/DRY; AAOX4 WITH EVEN AND STEADY GAIT; LUNGS CLEAR BL; HR EVEN AND REGULAR; PT DENIES ANY FEVER, CP, SOB, OR COUGH AT THIS TIME; PATIENT STATES PAIN OF 9/10 AT THIS TIME; VSS; PATIENT POSITIONED FOR COMFORT; HOB ELEVATED; BEDRAILS UP X1; BED DOWN. ER MD MADE AWARE OF PT STATUS.
[2017-10-27] MEDS ORDERED: fentaNYL 0.05 MG/ML VIAL IM ONE (01:15)
[2017-10-27 01:47] VITALS: BP 131/87
--- NOTE | 2017-10-27 01:48 | NUR ---
Patient discharged with v/s stable. Written and verbal after care instructions given and explained. Patient alert, oriented and verbalized understanding of instructions. Ambulatory with steady gait. All questions addressed prior to discharge. ID band removed. Patient advised to follow up with PMD. Rx of ACETAMINOPHEN, ZOFRAN given. Patient educated on indication of medication including possible reaction and side effects. Opportunity to ask questions provided and answered.
== END 2017-10-27 01:47 | disposition home or self-care (01) ==
LOC: MED 23:21
DX: G89.29 Other chronic pain (principal); R10.9 Unspecified abdominal pain; E05.00 Thyrotoxicosis with diffuse goiter without thyrotoxic crisis or storm; Z88.8 Allergy status to other drugs, medicaments and biological substances
CPT/HCPCS: 81002; 81025; 96372; 99283; J3010

== ENCOUNTER 2017-11-04 18:49 | Emergency (ER) | payer OTHER ==
[~2017-11-04] VITALS: Ht 170.2 cm; Wt 74.8 kg
[2017-11-04 18:58] VITALS: BP 142/87
--- NOTE | 2017-11-04 19:04 | NUR ---
PT AMBULATES TO BED 12
--- NOTE | 2017-11-04 19:17 | NUR ---
REPORT GIVEN JOSSELYN HENRIQUEZ
--- NOTE | 2017-11-04 19:29 | NUR ---
27Y/F C/O RLQ PAIN THAT RADIATES TO BACK, AND DARK BLOODY D/C. PT HAS BEEN SEEN IN ER AND PCP FOR SAME S/S. PT STATES SHE IS TAKING 2 ABX FROM PCP SINCE SATURDAY W/ NO RELIEF. WAS TOLD TO RETURN TO ER FOR WORSENING SYMPTOMS AND "CHECK FOR KIDNEY STONES". ABS IS ROUND, SOFT, ACTIVE BS X4, TENDERNESS TO RLQ. C/O N/V
[2017-11-04] MEDS ORDERED: ONDANSETRON 4 MG ODT PO ONE (20:30)
[2017-11-04] MEDS ORDERED: MORPHINE SULFATE 4 MG/ML SYR IM ONE (20:30)
[2017-11-04] MEDS ORDERED: ALUMINUM HYD/MAG/SIMETHICONE 30 ML UDC PO ONE (21:55)
[2017-11-04 22:38] VITALS: BP 140/80
== END 2017-11-04 22:39 | disposition home or self-care (01) ==
LOC: MED 18:49
DX: D36.7 Benign neoplasm of other specified sites (principal); R11.2 Nausea with vomiting, unspecified; E05.00 Thyrotoxicosis with diffuse goiter without thyrotoxic crisis or storm; Z88.8 Allergy status to other drugs, medicaments and biological substances; Z79.899 Other long term (current) drug therapy
CPT/HCPCS: 81002; 81025; 96372; 99283; J2270; S0119

== ENCOUNTER 2017-11-13 14:13 | Emergency (ER) | payer OTHER ==
[~2017-11-13] VITALS: Ht 170.2 cm; Wt 74.8 kg
[2017-11-13 14:37] VITALS: BP 122/86
--- NOTE | 2017-11-13 14:45 | NUR ---
AFTER PROVIDING URINE SAMPLE, PT AMBULTES TO BED 7, REPORT GIVEN TO JOSSELYN ANDREWS
--- NOTE | 2017-11-13 15:55 | NUR ---
PATIENT IS COMPLAINING OF LOWER ABDOMINAL PAIN THAT RADIATES TO THE RIGHT SIDE. SHE HAS A HISTORY OF FIBROID TUMORS AND GRAVES DISEASE. ALLERGIES TO IBUPROFIN AND TRAMADOL. PT ALSO STATED THAT SHE GETS A BAD STOMACH ACHE WITH NAPROXIN. LAST BM WAS THISMORNING. PT HAS BEEN VOMITING FOR 3 DAYS.
[2017-11-13] MEDS ORDERED: diphenhydrAMINE 50 MG/ML VIAL IM ONE (16:15)
[2017-11-13] MEDS ORDERED: COMMUNICATION ORDER MC STA (16:15)
[2017-11-13] MEDS ORDERED: METOCLOPRAMIDE 10 MG/2 ML INJ VIAL IM ONE (16:15)
--- NOTE | 2017-11-13 16:36 | NUR ---
patient refused medication reglan and benadryl. was notified.
--- NOTE | 2017-11-13 17:09 | NUR ---
patient was discharged with in home care instructions. explained to her the risks of opiates. patientr was given instruction to follow up with primary care doctor. pt was given medication prescriptions of reglan and acetomenophen. pateint was ambulatory.
[2017-11-13 17:12] VITALS: BP 127/82
== END 2017-11-13 17:09 | disposition home or self-care (01) ==
LOC: MED 14:13
DX: F11.20 Opioid dependence, uncomplicated (principal); E05.00 Thyrotoxicosis with diffuse goiter without thyrotoxic crisis or storm; Z88.8 Allergy status to other drugs, medicaments and biological substances
CPT/HCPCS: 81002; 81025; 99283; J1200; J2765

== ENCOUNTER 2017-12-22 08:32 | Emergency (ER) | payer OTHER ==
[~2017-12-22] VITALS: Ht 170.2 cm; Wt 75.7 kg
[2017-12-22 08:36] VITALS: BP 128/87
--- NOTE | 2017-12-22 08:37 | NUR ---
Gave report to Jamilah ARCOS.
--- NOTE | 2017-12-22 08:37 | NUR ---
Patient ambulated to bed 3. RN evaluating patient at bedside.
--- NOTE | 2017-12-22 08:49 | NUR ---
27 yo f bib self with c/o toothache to left upper side of mouth x 3 days with swelling. Pt reports that she has a dentist apt on of this upcoming week, but cannot tolerate the pain for another 4 days. pt deneis n/v/d/fever/chills. denies any pus/drainage from site. Reports difficulty eating r/t pain. Pt aaox4. gcs 15. cms intact. rr even and unlabored. lungs bilaterally clear. abd soft, non-tender, er md notified. pt needs met. safety precautions in place. will continue to monitor.
--- NOTE | 2017-12-22 09:10 | NUR ---
Dr. Burkett evaluating patient at bedside.
[2017-12-22 09:17] VITALS: BP 128/87
--- NOTE | 2017-12-22 09:17 | NUR ---
Patient discharged with v/s stable. Written and verbal after care instructions given and explained. Patient alert, oriented and verbalized understanding of instructions. Ambulatory with steady gait. All questions addressed prior to discharge. ID band removed. Patient advised to follow up with PMD. Rx of Clindamycin and Naproxen given. Patient educated on indication of medication including possible reaction and side effects. Opportunity to ask questions provided and answered.
== END 2017-12-22 09:17 | disposition home or self-care (01) ==
LOC: MED 08:32
DX: K04.7 Periapical abscess without sinus (principal); E05.00 Thyrotoxicosis with diffuse goiter without thyrotoxic crisis or storm; Z88.6 Allergy status to analgesic agent
CPT/HCPCS: 99283

== ENCOUNTER 2021-12-18 15:27 | Emergency (ER) | payer OTHER ==
[~2021-12-18] VITALS: Ht 170.2 cm; Wt 109.4 kg
[2021-12-18 15:27] VITALS: BP 144/97
[2021-12-18] MEDS ORDERED: ACET-8386 PO (16:56)
[2021-12-18] MEDS ORDERED: CLIN300C2 PO (16:58)
== END 2021-12-18 17:07 | disposition home or self-care (01) ==
LOC: MED 15:27
DX: S03.2XXA Dislocation of tooth, initial encounter (principal); Z88.5 Allergy status to narcotic agent; X58.XXXA Exposure to other specified factors, initial encounter; Y93.89 Activity, other specified; Y92.89 Other specified places as the place of occurrence of the external cause; Y99.8 Other external cause status
CPT/HCPCS: 99283